=== PATIENT | female | born 1950 | race Caucasian/White ===

== ENCOUNTER 2017-05-21 11:48 | Observation (INO) | END 2017-05-22 14:12 | disposition home or self-care (01) ==

== ENCOUNTER 2018-09-19 10:01 | Emergency (ER) | payer OTHER ==
[~2018-09-19] VITALS: Ht 154.9 cm; Wt 69.6 kg
[~2018-09-19 10:01] MED LIST: ASPI-817 PO; IBUP-1561 PO; OMEG-135 PO
[2018-09-19 10:04] VITALS: Ht 154.9 cm; Wt 69.6 kg
[2018-09-19] MEDS ORDERED: ONDANSETRON 4 MG INJ IV STA ×2 (10:46→12:34)
[2018-09-19] MEDS ORDERED: SOD CHLORIDE 0.9% 1,000 ML IV STA (10:46)
[2018-09-19] MEDS ORDERED: PANTOPRAZOLE 40 MG INJ IV STA (10:46)
[2018-09-19] MEDS ORDERED: FAMOTIDINE 20 MG INJ IV STA (10:46)
--- NOTE | 2018-09-19 10:50 | ERD ---
ER Documentation Chief Complaint Chief Complaint pt is bib self with c/o vomting since last night with dizziness HPI This is a 67-year-old female with a past medical history of diabetes high cholesterol who takes metformin aspirin and ibuprofen. She indicates that for the past 24 hours she has had multiple episodes of nonbloody nonbilious emesis. She was complaining of abdominal cramping. She indicates that yesterday she had a decrease in appetite and only ate a milk banana and a piece of bread and subsequently vomited this up. This morning upon awakening she stated she noticed blood-tinged color in the emesis. She has had no melanotic stools or hemoptysis. No recent travel. No recent hospitalizations. No diarrhea. Patient has no history of alcohol abuse. She indicates she is had a decrease in urinary output since the onset of emesis. However she denies any frequency urgency or dysuria. No polyuria no polydipsia. She feels dizzy and lightheaded but denies a headache. ROS All systems reviewed and are negative except as per history of present illness. Medications Home Meds Reported Medications Ibuprofen* (Ibuprofen*) 400 Mg Tablet, 400 MG PO Q6H PRN for PAIN, TAB 09/19/18 [place]-3 Acid Ethyl Esters (Lovaza) 1 Gm Capsule, 1 GM PO BID, CAP 09/19/18 Atorvastatin Calcium (Atorvastatin Calcium) 10 Mg Tablet, 10 MG PO QHS, #30 TAB 09/19/18 Benazepril Hcl* (Benazepril Hcl*) 10 Mg Tablet, 10 MG PO DAILY, #30 TAB 09/19/18 Metformin Hcl* (Metformin Hcl*) 500 Mg Tablet, 500 MG PO WITH BREAKFAST, #30 TAB 09/19/18 Levothyroxine Sodium* (Levothyroxine Sodium*) 25 Mcg Tablet, 25 MCG PO BEFORE BREAKFAST, #30 TAB 09/19/18 Aspirin* (Aspirin* EC) 81 Mg Tablet.dr, 81 MG PO DAILY, TAB 09/19/18 Discontinued Scripts Ibuprofen* (Motrin*) 400 Mg Tab, 400 MG PO Q6H PRN for PAIN, #30 TAB Prov:HAYCAMILO V. AUDITING CODER 05/22/17 [place]-3 Fatty Acids/Fish Oil (Fish Oil 1,000 mg Capsule) 1 Each Capsule, 1 EACH PO BID, #60 CAP Prov:HAY,CAMILO V. AUDITING CODER 05/22/17 Aspirin* (Aspirin* EC) 81 Mg Tablet.dr, 81 MG PO DAILY for 30 Days, #30 TAB Prov:CAMILO HAY V. AUDITING CODER 05/22/17 Allergies Allergies: Coded Allergies: No Known Allergy (Unverified , 09/19/18) PMhx/Soc History of Surgery: No Anesthesia Reaction: No Hx Neurological Disorder: No Hx Respiratory Disorders: No Hx Cardiac Disorders: No Hx Psychiatric Problems: No Hx Miscellaneous Medical Probl: No Hx Alcohol Use: Yes (occassional) Hx Substance Use: No Hx Tobacco Use: No Physical Exam Vitals Vital Signs Date Temp Pulse Resp B/P (MAP) Pulse Ox O2 O2 Flow FiO2 Time Delivery Rate 09/19/18 97.9 104 16 126/81 100 Room Air 11:10 (96) 09/19/18 97.9 121 16 140/97 97 10:04 (111) Physical Exam Constitutional:Well-developed. Well-nourished. HEENT:Normocephalic. Atraumatic.Pupils were equal round reactive to light. Dry mucous membranes.No tonsillar exudates. No conjunctival pallor Neck: No nuchal rigidity. No lymphadenopathy. No posterior cervical spine tenderness or step-offs. Respiratory: Not using accessory muscles of respiration.Lungs were clear to auscultation bilaterally. No rhonchi. No rales. No wheezing. Cardiovascular: Regular rate regular rhythm.No murmurs. No rubs were appreciated.S1, S2 normal. Distal pulses are palpable 2+ bilaterally. GI: Abdomen was soft. Mild tenderness in the left lower quadrant. Non Distended. No pulsatile abdominal masses or bruits. No rebound. No guarding. Bowel sounds were present and normal. Muscle skeletal: Full range of motion of both the upper and lower extremities bilaterally.Normal muscle tone.No assymetrical calf tenderness or swelling. Skin: No petechia, no purpura. No lesions on the palms or the soles of the feet. No maculopapular rash. NEURO: Patient was alert, awake, orientated x3.No facial droop. Gait observed and normal with no ataxia.Speech had regular rate and rhythm. No focal neurological deficits. Result Diagram: 09/19/18 1103 09/19/18 1103 Results 24 hrs Laboratory Tests Test 09/19/18 11:03 White Blood Count 11.2 10^3/ul Red Blood Count 4.12 10^6/ul Hemoglobin 12.2 g/dl Hematocrit 36.7 % Mean Corpuscular Volume 89.1 fl Mean Corpuscular Hemoglobin 29.6 pg Mean Corpuscular Hemoglobin Concent 33.2 g/dl Red Cell Distribution Width 12.8 % Platelet Count 154 10^3/UL Mean Platelet Volume 10.2 fl Immature Granulocytes % 0.300 % Neutrophils % 63.1 % Lymphocytes % 29.6 % Monocytes % 6.3 % Eosinophils % 0.3 % Basophils % 0.4 % Nucleated Red Blood Cells % 0.0 /100WBC Immature Granulocytes # 0.030 10^3/ul Neutrophils # 7.1 10^3/ul Lymphocytes # 3.3 10^3/ul Monocytes # 0.7 10^3/ul Eosinophils # 0.0 10^3/ul Basophils # 0.0 10^3/ul Nucleated Red Blood Cells # 0.0 10^3/ul Prothrombin Time 13.8 Sec Prothrombin Time Ratio 1.1 INR International Normalized Ratio 1.05 Activated Partial Thromboplast Time 24.4 Sec Sodium Level 142 mmol/L Potassium Level 3.3 mmol/L Chloride Level 107 mmol/L Carbon Dioxide Level 24 mmol/L Anion Gap 11 Blood Urea Nitrogen 23 mg/dl Creatinine 0.84 mg/dl Est Glomerular Filtrat Rate mL/min > 60 mL/min Glucose Level 128 mg/dl Calcium Level 8.9 mg/dl Total Bilirubin 1.4 mg/dl Direct Bilirubin 0.00 mg/dl Indirect Bilirubin 1.4 mg/dl Aspartate Amino Transf (AST/SGOT) 89 IU/L Alanine Aminotransferase (ALT/SGPT) 55 IU/L Alkaline Phosphatase 133 IU/L Troponin I < 0.012 ng/ml Total Protein 8.0 g/dl Albumin 3.9 g/dl Globulin 4.10 g/dl Albumin/Globulin Ratio 0.95 Amylase Level 126 U/L Lipase 104 U/L Current Medications Medications Dose Sig/Maryanne Start Time Status Last (Trade) Ordered Route PRN Stop Time Admin Dose Reason Admin Sodium 1,000 ml @ Q1H STAT 09/19/18 DC 09/19/18 Chloride 1,000 mls/hr IV 10:46 09/19/18 11:53 11:45 Famotidine 20 mg ONCE STAT 09/19/18 DC 09/19/18 (Pepcid Iv) IV 10:46 09/19/18 11:53 10:50 40 mg ONCE STAT 09/19/18 DC 09/19/18 Pantoprazole IV 10:46 09/19/18 11:53 (Protonix 10:50 Iv) Ondansetron 4 mg ONCE STAT 09/19/18 DC 09/19/18 HCl (Zofran IV 10:46 09/19/18 11:53 Inj) 10:50 Ondansetron 4 mg ONCE STAT 09/19/18 DC 09/19/18 HCl (Zofran IV 12:34 09/19/18 13:16 Inj) 12:37 40 ml ONCE STAT 09/19/18 DC 09/19/18 Miscellaneous PO 12:34 09/19/18 13:16 Medication 12:37 (Gi Cocktail (2)) Belladonna/ 2 tab ONCE STAT 09/19/18 DC 09/19/18 Phenobarbital PO 12:34 09/19/18 13:16 () 12:37 Pantoprazole 100 ml @ ONCE STAT 09/19/18 DC 80 mg/Sodium 400 mls/hr IVPB 12:34 09/19/18 Chloride 12:48 Sodium 100 ml @ ud STK-MED 09/19/18 DC Chloride ONCE .ROUTE 13:46 09/19/18 13:47 Iohexol 150 ml STK-MED 09/19/18 DC (Omnipaque ONCE .ROUTE 13:46 09/19/18 300mg/ ml) 13:47 Procedures/MDM The patient presented to the emergency department with a presentation of upper gastrointestinal bleeding. My differential diagnosis included but was not limited to peptic ulcer disease, gastric or esophageal erosions, gastritis, esophageal varices, Deepti-Huertas tear, tumor or arteriovenous malformations. I did a 12-lead EKG tracing there is no evidence of atypical myocardial ischemia. 12 Lead EKG tracing ordered and reviewed by myself showed: Normal sinus rhythm of 97 bpm and no arrhythmia. ND interval normal. QRS duration normal. No ST segment elevation No ST segment depression. No changes consistent with acute ischemia. The patient had a chest radiograph which showed no free air underneath the diaphragm. The patient had a CT scan which showed no evidence of diverticulosis. The patient's hemoglobin was within normal limits. She received IV Protonix and Pepcid. Observation Note: Time: 4 hours Family Hx: No Hypertension Evaluation: Multiple exams showed improving symptoms and no evidence of active hematemesis. The patient states she did have this happen one year ago. She also received a GI cocktail. Her pain is sniffily improved. I did feel she would benefit from an outpatient upper endoscopy. She was instructed to no longer take the ibuprofen which she states she takes on a very regular basis for arthritic pain in her left shoulder. She was given a prescription of Wilder to take if needed for further analgesic control on an as-needed basis and Colace as a form of constipation control. The patient was discharged home in fair condition. They were instructed to return to the emergency department at any ti me if there was any worsening of their condition. The patient stated they would follow up with their PCP in the next 24-48 hours to initiate a suitable medication regimen under the care of their PCP as well as to allow their PCP to monitor any drug reactions. The patient was discharged home with prescriptions after they gave informed consent to the new medication. They were also fully informed by myself on the adverse effects and adverse drug interactions in order to provide adequate safeguards to prevent possible adverse reactions to medications. Departure Diagnosis: Primary Impression: Acute vomiting Condition: CARLITO Acosta MD Sep 19, 2018 10:50
[2018-09-19] MEDS ORDERED: ASPI-817 PO (12:09)
[2018-09-19] MEDS ORDERED: LEVO25TA6 PO (12:09)
[2018-09-19] MEDS ORDERED: METF500T24 PO (12:09)
[2018-09-19] MEDS ORDERED: BENA10TA4 PO (12:10)
[2018-09-19] MEDS ORDERED: ATOR10TA65 PO (12:11)
[2018-09-19] MEDS ORDERED: OMEG1CAP2 PO (12:11)
[2018-09-19] MEDS ORDERED: IBUP-1541 PO (12:12)
[2018-09-19] MEDS ORDERED: PANTOPRAZOLE IV 80 MG in SOD CHLORIDE 0.9% 100 ML IVPB STA (12:34)
[2018-09-19] MEDS ORDERED: LIDOCAINE/MYLANTA 40 ML BTL PO STA (12:34)
[2018-09-19] MEDS ORDERED: BELLADONNA/PHENOBARBITAL TAB PO STA (12:34)
[2018-09-19] MEDS ORDERED: SOD CHLORIDE 0.9% 100 ML ONE (13:46)
[2018-09-19] MEDS ORDERED: IOHEXOL 300MG/ML 150 ML BTL ONE (13:46)
[2018-09-19] MEDS ORDERED: DOCU-144 PO (14:02)
[2018-09-19] MEDS ORDERED: HYDR-4011 PO (14:02)
[2018-09-19] MEDS ORDERED: FAMO-96 PO (14:02)
[2018-09-19 14:55] VITALS: BP 112/73; PULSE 89; RESP 16
== END 2018-09-19 14:57 | disposition home or self-care (01) ==
LOC: E/R 10:01
DX: R11.10 Vomiting, unspecified (principal); E11.9 Type 2 diabetes mellitus without complications; R10.9 Unspecified abdominal pain; Z79.82 Long term (current) use of aspirin; Z79.84 Long term (current) use of oral hypoglycemic drugs
CPT/HCPCS: 36415; 71045; 74177; 80053; 82150; 83690; 84484; 85025; 85610; 85730; 86850; 86900; 86901; 93005; 96374; 96375; 96376; C9113; J2405; J7030; Q9967; Z7502; Z7610